=== PATIENT | female | born 1980 | race Hispanic/Latino ===

== ENCOUNTER 2020-04-07 12:00 | Inpatient (IN) | payer OTHER ==
[~2020-04-07] VITALS: Ht 161.3 cm; Wt 110.0 kg
[2020-04-10 10:31] LABS: BASOPHILS % (AUTO) 0.6 % (0.0-5.0); EOSINOPHILS % (AUTO) 1.2 % (0.0-8.0); HEMATOCRIT 36.9 % (36-48); LYMPHOCYTES % (AUTO) 25.8 % (21.0-51.0); MEAN CORPUSCULAR HEMOGLOBIN 29.4 pg (27.0-33.0); MEAN CORPUSCULAR VOLUME 91.8 fL (79-99); MONOCYTES % (AUTO) 4.9 % (3.0-13.0); PLATELET COUNT (AUTO) 293 K/uL (130-400); RED BLOOD CELL COUNT(AUTO) 4.02 MIL/uL (4.00-5.50); RED CELL DISTRIBUTION WIDTH 12.5 % (11.0-15.5); WHITE BLOOD COUNT (AUTO) 8.6 K/uL (4.8-10.8)
[2020-04-10 10:42] LABS: INR 0.93 (0.85-1.15); PROTHROMBIN TIME 10.1 SEC (9.6-11.6)
[2020-04-10 10:43] LABS: CREATININE 0.6 mg/dL (0.5-1.5)
[2020-04-10 11:20] LABS: APPEARANCE,URINE Clear (CLEAR); BILIRUBIN,URINE Negative (NEGATIVE); COLOR,URINE Yellow (YELLOW); GLUCOSE, URINE (UA) Negative (NEGATIVE); KETONES,URINE Negative (NEGATIVE); LEUKOCYTE ESTERASE ,URINE Negative (NEGATIVE); NITRATE,URINE Negative (NEGATIVE); OCCULT BLOOD,URINE Negative (NEGATIVE); PROTEIN,URINE Negative (NEGATIVE); UROBILINOGEN,URINE 0.2 mg/dL (0.2-1.0)
[2020-04-11 14:34] VITALS: BP 140/69
[2020-04-11] MEDS ORDERED: LISI10TA7 PO (14:40)
[2020-04-11] MEDS ORDERED: OMEG-125 PO (14:40)
[2020-04-11] MEDS ORDERED: TURM1POW2 MC (14:40)
[2020-04-11] MEDS ORDERED: GARL1000 PO (14:40)
[2020-04-11] MEDS ORDERED: METF-444 PO (14:40)
[2020-04-14] VITALS (20 sets, daily range): BP systolic 97–123; BP diastolic 55–74
[2020-04-14] MEDS: CEFAZOLIN SODIUM 1 GM VIAL IVP SCH ×2 (12:00→16:15)
[2020-04-14] MEDS ORDERED: SODIUM CHLORIDE 0.9% 1000ML 1,000 ML IV ONE (12:03)
--- NOTE | 2020-04-14 12:05 | NUR ---
POTENTIAL FOR INFECTION: CLIPPED RT HIP / RT UPPER LEG PER SAMANTHA WILLIAM, FOLLOWED BY WIPING WITH PANCHO: 2% CHLORHEXIDINE GLUCONATE CLOTH PATIENTS PRE-OP SKIN PREP.
[2020-04-14] MEDS ORDERED: ACETAMINOPHEN EXTRA STRENGTH 500 MG TABLET ONE (13:13)
[2020-04-14] MEDS ORDERED: CELECOXIB 200 MG CAP ONE (13:14)
[2020-04-14] MEDS ORDERED: MIDAZOLAM HCL 1 MG/ML 2ML VIAL ONE (13:36)
[2020-04-14] MEDS ORDERED: FENTANYL CITRATE PF 50 MCG/1 ML 2ML VIAL ONE ×4 (13:36→18:12)
[2020-04-14] MEDS ORDERED: CEFAZOLIN SODIUM 1 GM VIAL ONE (14:27)
[2020-04-14] MEDS ORDERED: TRANEXAMIC ACID 1000MG/10ML ONE ×2 (14:27→19:31)
[2020-04-14] MEDS ORDERED: ROPIVACAINE 0.5% 5MG/ML 30ML IJ ONE ×2 (15:04→15:05)
[2020-04-14] MEDS ORDERED: EPHEDRINE SULFATE 50 MG/ML AMPULE ONE (15:59)
[2020-04-14] MEDS ORDERED: ROCURONIUM 10MG/1ML SYR 10 MG/ML ML ONE (16:04)
[2020-04-14] MEDS ORDERED: ALBUMIN (HUMAN) 5% 500 ML IV ONE (16:09)
[2020-04-14] MEDS ORDERED: CEFAZOLIN SODIUM 1 GM VIAL IRRIG ONE (16:40)
[2020-04-14] MEDS ORDERED: DiphenhydrAMINE HCL 50 MG/ML VIAL IVP PRN (19:45)
[2020-04-14] MEDS ORDERED: POTASSIUM CHLORIDE 10% ELIXIR 20 MEQ/15 ML UDCUP PO PRN (19:45)
[2020-04-14] MEDS ORDERED: CALCIUM CARBONATE 500 MG TABLET PO PRN (19:45)
[2020-04-14] MEDS ORDERED: ONDANSETRON HCL 4 MG/2 ML VIAL IVP PRN (19:45)
[2020-04-14] MEDS ORDERED: POTASSIUM CHLORIDE 20MEQ/100ML 100 ML IV PRN (19:45)
[2020-04-14] MEDS ORDERED: FERROUS FUMARATE 324 MG TABLET PO PRN (19:45)
[2020-04-14] MEDS ORDERED: POTASSIUM CHLORIDE 20 MEQ ERTAB PO PRN (19:45)
[2020-04-14] MEDS ORDERED: TRAMADOL HCL 50 MG TABLET PO PRN (19:45)
[2020-04-14] MEDS ORDERED: LIDOCAINE HCL-MPF 1% 2ML VIAL IV PRN (19:45)
[2020-04-14] MEDS ORDERED: KETOROLAC TROMETHAMINE 15MG/ML IV PRN (19:45)
[2020-04-14] MEDS ORDERED: MEPERIDINE-PF 25 MG/ML SYG ONE ×2 (20:36→20:46)
[2020-04-14] MEDS: INSULIN HUMULIN R 100 UNIT/ML 3ML SQ SCH (21:00)
--- NOTE | 2020-04-14 21:15 | NUR ---
POST OP PATIENT ARRIVED TO ROOM 325 AAOX3 BUT DROWSY STACIE DRESSING TO RIGHT HIP DRY AND INTACT NO LEAKS. ALL QUESTIONS AND CONCERNS ADDRESSED.
[2020-04-14] MEDS: SODIUM CHLORIDE 0.9% 1000ML 1,000 ML IV SCH (22:29)
[2020-04-14] MEDS: CELECOXIB 200 MG CAP PO SCH (22:29)
[2020-04-14] MEDS: FAMOTIDINE 20MG TAB 20 MG TAB PO SCH (22:29)
[2020-04-14] MEDS: PREGABALIN 25 MG CAP PO SCH (22:29)
[2020-04-14] MEDS: ACETAMINOPHEN EXTRA STRENGTH 500 MG TABLET PO SCH (22:30)
[2020-04-14] MEDS: OXYCODONE HCL 5 MG TAB PO PRN (22:30)
[2020-04-14] MEDS: CEFAZOLIN 3GM /D5W 100ML 100 ML IV SCH (23:51)
[2020-04-14] MEDS: HYDROMORPHONE HCL 2 MG/ML VIAL IVP PRN (23:52)
[2020-04-15] VITALS (7 sets, daily range): BP systolic 100–117; BP diastolic 52–68
--- NOTE | 2020-04-15 01:15 | NUR ---
ACTIVITY PATIENT ASSISTED TO EDGE OF BED TO DANGLE LEGS PER PROTOCOL. PATIENT TOLERATED WELL AND WAS ASSISTED BACK TO BED.
[2020-04-15] MEDS: HYDROMORPHONE HCL 2 MG/ML VIAL IVP PRN ×5 (01:23→23:16)
[2020-04-15] MEDS: ACETAMINOPHEN EXTRA STRENGTH 500 MG TABLET PO SCH ×3 (03:45→20:33)
[2020-04-15] MEDS: SODIUM CHLORIDE 0.9% 1000ML 1,000 ML IV SCH ×2 (05:26→15:32)
[2020-04-15 05:40] LABS: HEMATOCRIT 28.1 % (36-48); MEAN CORPUSCULAR HEMOGLOBIN 29.3 pg (27.0-33.0); MEAN CORPUSCULAR VOLUME 91.5 fL (79-99); RED BLOOD CELL COUNT(AUTO) 3.07 MIL/uL (4.00-5.50); RED CELL DISTRIBUTION WIDTH 12.5 % (11.0-15.5); WHITE BLOOD COUNT (AUTO) 13.4 K/uL (4.8-10.8)
[2020-04-15 05:54] LABS: CREATININE 0.7 mg/dL (0.5-1.5); POTASSIUM 4.1 mmol/L (3.5-5.1)
[2020-04-15] MEDS: INSULIN HUMULIN R 100 UNIT/ML 3ML SQ SCH ×4 (06:33→20:38)
[2020-04-15] MEDS: METFORMIN HCL 500 MG TABLET PO SCH ×2 (08:06→17:10)
[2020-04-15] MEDS: OXYCODONE HCL 5 MG TAB PO PRN ×2 (08:07→20:34)
[2020-04-15] MEDS: CEFAZOLIN 3GM /D5W 100ML 100 ML IV SCH (08:45)
[2020-04-15] MEDS ORDERED: CEFAZOLIN SODIUM 1 GM VIAL ONE (09:28)
[2020-04-15] MEDS: POLYETHYLENE GLYCOL 3350 17 GM POWD.PACK PO SCH (09:43)
[2020-04-15] MEDS: PREGABALIN 25 MG CAP PO SCH ×2 (09:43→20:32)
[2020-04-15] MEDS: APIXABAN 2.5 MG TABLET PO SCH ×2 (09:43→20:33)
[2020-04-15] MEDS: FAMOTIDINE 20MG TAB 20 MG TAB PO SCH ×2 (09:43→20:33)
[2020-04-15] MEDS: FISH OIL 1000 MG/CAP PO SCH (09:44)
[2020-04-15] MEDS: CELECOXIB 200 MG CAP PO SCH ×2 (09:44→20:33)
[2020-04-15] MEDS: LISINOPRIL 10 MG TABLET PO SCH (09:44)
[2020-04-16] VITALS: BP 107/56
[2020-04-16] MEDS: HYDROMORPHONE HCL 2 MG/ML VIAL IVP PRN ×3 (00:56→04:45)
[2020-04-16] MEDS: OXYCODONE HCL 5 MG TAB PO PRN ×3 (01:30→12:28)
[2020-04-16] MEDS: ACETAMINOPHEN EXTRA STRENGTH 500 MG TABLET PO SCH ×2 (03:07→12:28)
[2020-04-16 04:00] VITALS: BP 97/54
[2020-04-16] MEDS: INSULIN HUMULIN R 100 UNIT/ML 3ML SQ SCH ×2 (06:32→11:30)
[2020-04-16 08:36] VITALS: BP 111/64
[2020-04-16] MEDS: POLYETHYLENE GLYCOL 3350 17 GM POWD.PACK PO SCH (09:47)
[2020-04-16] MEDS: FAMOTIDINE 20MG TAB 20 MG TAB PO SCH (09:47)
[2020-04-16] MEDS: FISH OIL 1000 MG/CAP PO SCH (09:48)
[2020-04-16] MEDS: PREGABALIN 25 MG CAP PO SCH (09:48)
[2020-04-16] MEDS: CELECOXIB 200 MG CAP PO SCH (09:48)
[2020-04-16] MEDS: METFORMIN HCL 500 MG TABLET PO SCH (09:48)
[2020-04-16] MEDS: LISINOPRIL 10 MG TABLET PO SCH (09:48)
[2020-04-16] MEDS: APIXABAN 2.5 MG TABLET PO SCH (09:48)
[2020-04-16 17:16] VITALS: BP 96/56
[2020-04-16] MEDS ORDERED: HYDR-4457 PO (17:20)
[2020-04-16] MEDS ORDERED: APIX2.5T PO (17:20)
--- NOTE | 2020-04-16 18:05 | NUR ---
DISCHARGE PATIENT GIVEN DISCHARGE INSTRUCTIONS AND EDUCATION ON FOLLOW UP APPOINTMENTS, NEW RX (ELIQUIS, NORCO), PHYSICAL THERAPY ARRANGED BY [facility]ER TOMORROW, AND STACIE DRESSING CARE. PATIENT VERBALIZED UNDERSTANDING OF ALL EDUCATION GIVEN VIA TEACH BACK. IV DISCONTINUED, CATHETER INTACT. NO DISTRESS NOTED UPON DISCHARGE. STACIE DRESSING CHANGED, SEAL INTACT, NEGATIVE PRESSURE ACTIVE.
--- NOTE | 2020-04-16 18:31 | NUR ---
DC PLAN VISITED WITH PATIENT GOT NOAM FOR ANY IN NETWORK FOR HOME HEALTH AND DME. SENT AND SAID NOT IN NETWORK: [facility], [facility], [facility], [facility], [facility]. CALLED INSURANCE NUMBER ON FACE SHEET. AFTER DISCUSSING CASE WITH FRANKLYN . FINAL IN NETWORK. [facility] AND [facility]. DME IN [place] [employer]IST. SNF BENEFITS [facility], [facility], [facility], [facility]. DISCUSSED CASE WITH PATIENT DECIDED SHE WILL BORROW WALKER FROM FAMILY NOT USING. WILL GO TO OUTPATIENT THERAPY WITH [facility] AND WILL FOLLOW UP WITH DR. LENZ. DID NOT WANT TO GO TO SNF SINCE THERE ARE ACTIVE COVIDS IN SOME OF THE SNF'S. DR. LENZ IN ROOM WITH PATIENT ALL AGREED ON [facility]. PATIENT WANTED TO GO HOME. UNDERSTANDS THAT IT IS ALREADY AFTER 5 AND WILL NOT HAVE ACCEPTANCE TODAY. SAID SHE WAS FINE WITH THAT WANTS TO GO HOME. DR. LENZ GAVE OKAY. CM FAXED INFO TO [facility]. WILL CALL IN THE MORNING WHEN THEY OPEN TO SEE IF RECEIVED AND ACCEPTED. GAVE PATIENT DIRECT PHONE NUMBER TO . Addendum: 04/16/20 at 1839 by DAVIDSON JONES RN CM Amended: Links added.
--- NOTE | 2020-04-16 18:43 | NUR ---
DC PLAN VISITED WITH PATIENT. PATIENT LIVES WITH SISTER. INDEPENDENT ABLE TO PERFORM ADL'S. PATIENT HAS NO SERVICES OR DME'S. FEELS SAFE TO RETURN HOME. CORRECT ADDRESS [address] [facility] [id number] [id number] SENT TO REGISTRATION. Addendum: 04/16/20 at 1845 by DAVIDSON JONES RN CM Amended: Links added.
[2020-04-17] MEDS ORDERED: BISACODYL 10 MG SUPP.RECT RC PRN (19:45)
== END 2020-04-16 19:00 | disposition home or self-care (01) | DRG 470 ==
LOC: EDSTATUS 12:00 → DAHIP 04-14 10:47 → 3DH 04-14 20:49
PROVIDERS: ADMIT Orthopaedic Surgery; ATTEND Orthopaedic Surgery
PROC: 0SR90JZ Replacement of Right Hip Joint with Synthetic Substitute, Open Approach (ICD-10-PCS; principal; 2020-04-14 15:20)
PROC: 3E0T3BZ Introduction of Anesthetic Agent into Peripheral Nerves and Plexi, Percutaneous Approach (ICD-10-PCS; 2020-04-14 15:20)
DX: M16.11 Unilateral primary osteoarthritis, right hip (principal); D62 Acute posthemorrhagic anemia; M87.9 Osteonecrosis, unspecified; Q65.89 Other specified congenital deformities of hip; E11.9 Type 2 diabetes mellitus without complications; I10 Essential (primary) hypertension; Z82.49 Family history of ischemic heart disease and other diseases of the circulatory system; Z83.3 Family history of diabetes mellitus; Z20.828 Contact with and (suspected) exposure to other viral communicable diseases
CPT/HCPCS: 36415; 73503; 80048; 81003; 82948; 84703; 85025; 85027; 85610; 87641; 97039; C1776; G0378; J0690; J1170; J1815; J1885; J2175; J2250; J2795; J3010; J3490; J7030; P9045; U0003

== ENCOUNTER 2020-04-19 17:32 | Inpatient (IN) | payer OTHER ==
[~2020-04-19] VITALS: Ht 160 cm; Wt 109.5 kg
[~2020-04-19 17:32] MED LIST: APIX2.5T PO; GARL1000 PO; HYDR-4457 PO; LISI10TA7 PO; METF-444 PO; OMEG-125 PO; TURM1POW2 MC
[2020-04-19] MEDS ORDERED: ACETAMINOPHEN EXTRA STRENGTH 500 MG TABLET ONE (18:14)
[2020-04-19 18:22] LABS: BASOPHILS % (AUTO) 0.4 % (0.0-5.0); EOSINOPHILS % (AUTO) 0.8 % (0.0-8.0); HEMATOCRIT 27.2 % (36-48); LYMPHOCYTES % (AUTO) 13.4 % (21.0-51.0); MEAN CORPUSCULAR HEMOGLOBIN 29.3 pg (27.0-33.0); MEAN CORPUSCULAR HGB CONC 32.4 g/dL (32.0-36.0); MEAN CORPUSCULAR VOLUME 90.7 fL (79-99); MONOCYTES % (AUTO) 4.6 % (3.0-13.0); NEUTROPHILS % (AUTO) 80.3 % (40.0-77.0); PLATELET COUNT (AUTO) 326 K/uL (130-400); RED CELL DISTRIBUTION WIDTH 12.6 % (11.0-15.5); WHITE BLOOD COUNT (AUTO) 11.2 K/uL (4.8-10.8)
[2020-04-19 18:26] LABS: APPEARANCE,URINE Clear (CLEAR); BILIRUBIN,URINE Negative (NEGATIVE); COLOR,URINE Yellow (YELLOW); GLUCOSE, URINE (UA) Negative (NEGATIVE); KETONES,URINE Negative (NEGATIVE); LEUKOCYTE ESTERASE ,URINE Negative (NEGATIVE); NITRATE,URINE Negative (NEGATIVE); OCCULT BLOOD,URINE Negative (NEGATIVE); PH,URINE 7.5 (5.0-8.0); PROTEIN,URINE Negative (NEGATIVE); UROBILINOGEN,URINE 0.2 mg/dL (0.2-1.0)
[2020-04-19 18:55] LABS: CARBON DIOXIDE 28 mmol/L (21-32); CHLORIDE 100 mmol/L (101-111); CREATININE 0.7 mg/dL (0.5-1.5); GLOMERULAR FILTR. RATE CALC 98 mL/min (>60); GLUCOSE,RANDOM 147 mg/dL (70-105); POTASSIUM 3.3 mmol/L (3.5-5.1); SODIUM SERUM 137 mmol/L (136-145); UREA NITROGEN, BLOOD 8 mg/dL (7-18)
[2020-04-19 19:08] LABS: ALANINE AMINOTRANSFERASE 32 U/L (12-78); ALBUMIN 3.5 g/dL (3.5-5.0); ASPARTATE AMINOTRANSFERASE 22 U/L (10-37); BILIRUBIN,TOTAL 0.3 mg/dL (0.2-1.0); CREATINE KINASE, TOTAL 326 U/L (21-232); MYOGLOBIN 20 ng/mL (10-92); TOTAL PROTEIN, SERUM 8.1 g/dL (6.0-8.3); TROPONIN I < 0.04 ng/mL (0.00-0.06)
[2020-04-19] MEDS ORDERED: POTASSIUM BICARB/CIT AC 25 MEQ TABLET.EFF ONE (19:32)
[2020-04-19 20:22] LABS: INR 0.95 (0.85-1.15); PARTIAL THROMBOPLASTIN TIME 30.3 SEC (26.3-35.5); PROTHROMBIN TIME 10.3 SEC (9.6-11.6)
[2020-04-19] MEDS ORDERED: HYDROCODONE/ACETAMINOPHEN 5/325 MG TAB ONE (20:22)
[2020-04-19] MEDS ORDERED: DEXTROSE 50%-WATER 50 ML DISP.SYRIN IV PRN (20:45)
[2020-04-19] MEDS ORDERED: GLUCAGON 1MG KIT 1 MG ML IM PRN (20:45)
[2020-04-19] MEDS ORDERED: ACETAMINOPHEN 325 MG TAB PO PRN (20:45)
[2020-04-19] MEDS ORDERED: VANCOMYCIN PROTOCOL PER PHARMACY IV SCH (20:45)
[2020-04-19] MEDS ORDERED: HYDRALAZINE HCL 20 MG/ML VIAL IV PRN (21:00)
[2020-04-19] MEDS ORDERED: ONDANSETRON HCL 4 MG/2 ML VIAL IVP PRN (21:00)
[2020-04-19] MEDS ORDERED: COMPOUND IV REFRIGERATED 1 EACH IVSOLN MISC PRN (21:00)
[2020-04-19] MEDS ORDERED: ZOSYN 3.375GM+NS 50ML 50 ML IV ONE (21:09)
[2020-04-19] MEDS ORDERED: IOHEXOL 350 MG/ML 100ML INFUS..BTL IV ONE (21:47)
[2020-04-19] MEDS: SODIUM CHLORIDE 0.9% 1000ML 1,000 ML IV SCH (22:20)
[2020-04-19] MEDS: FAMOTIDINE 20MG TAB 20 MG TAB PO SCH (22:20)
[2020-04-19] MEDS: VANCOMYCIN 2 GM in SODIUM CHLORIDE 0.9% 500ML 500 ML IV ONE (22:20)
[2020-04-19] MEDS: INSULIN R PO SS1 SQ SCH (22:20)
[2020-04-19] MEDS: ZOSYN 3.375GM+NS 50ML 50 ML IV SCH (22:20)
--- NOTE | 2020-04-19 22:20 | NUR ---
ADMISSION PATIENT ADMITTED FROM ER INTO ROOM 327, AWAKE, ALERT, AND VERBALLY RESPONSIVE. NO C/O PAIN OR DISCOMFORT AT THIS TIME. STACIE DRESSING TO RIGHT HIP, FUNCTIONING PROPERLY. PATIENT RIGHT THIGH WARM TO TOUCH, BUT NO REDNESS, OR DRAINAGE OBSERVED. PATIENT WAS ORIENTED TO ROOM, CALL LIGHT WITHIN REACH, BED IN LOWEST POSITION. Addendum: 04/20/20 at 0122 by ACE PEREZ RN Amended: Links added.
[2020-04-20] VITALS: BP 134/76
[2020-04-20] MEDS: VANCOMYCIN 2 GM in SODIUM CHLORIDE 0.9% 500ML 500 ML IV ONE (01:51)
[2020-04-20 04:00] VITALS: BP 126/65
[2020-04-20] MEDS: INSULIN R PO SS1 SQ SCH ×3 (05:28→21:00)
[2020-04-20] MEDS: ZOSYN 3.375GM+NS 50ML 50 ML IV SCH ×3 (05:28→21:59)
[2020-04-20 05:57] LABS: HEMATOCRIT 24.3 % (36-48); MEAN CORPUSCULAR HEMOGLOBIN 29.2 pg (27.0-33.0); MEAN CORPUSCULAR HGB CONC 32.1 g/dL (32.0-36.0); RED BLOOD CELL COUNT(AUTO) 2.67 MIL/uL (4.00-5.50); RED CELL DISTRIBUTION WIDTH 12.7 % (11.0-15.5); WHITE BLOOD COUNT (AUTO) 8.9 K/uL (4.8-10.8)
[2020-04-20 06:34] LABS: CREATININE 0.6 mg/dL (0.5-1.5); POTASSIUM 3.9 mmol/L (3.5-5.1)
[2020-04-20 08:00] VITALS: BP 124/71
[2020-04-20] MEDS ORDERED: ENOXAPARIN SODIUM 40 MG/0.4 ML SYRINGE SQ SCH (09:00)
[2020-04-20] MEDS ORDERED: VANCOMYCIN 1.5 GM in SODIUM CHLORIDE 0.9% 250 ML IV SCH (09:00)
[2020-04-20] MEDS: FAMOTIDINE 20MG TAB 20 MG TAB PO SCH ×2 (09:30→21:58)
[2020-04-20] MEDS: HYDROCODONE/ACETAMINOPHEN 5/325 MG TAB PO PRN ×2 (09:39→21:59)
[2020-04-20 12:00] VITALS: BP 125/71
[2020-04-20] MEDS: SODIUM CHLORIDE 0.9% 1000ML 1,000 ML IV SCH ×2 (12:30→22:08)
[2020-04-20] MEDS: VANCOMYCIN 1.5 GM in SODIUM CHLORIDE 0.9% 250 ML IV SCH (14:40)
--- NOTE | 2020-04-20 15:16 | NUR ---
D/C PLAN CM spoke to pt regarding d/c planning. Pt is readmission from less than 4 days. States information is the same. Lives with spouse and has a wk at home. States she was scheduled to start o/p PT with [facility] tomorrow. CM explained consults and tests are pending to r/o infection. Explained option of possibly AIU or SNF if mcc IV abx needed. Verbalized understanding. BOYD explained again that Dr. Hwang is pending to evaluate and decide plan of care. Plan for now is to return home with same services. CM to f/u. Addendum: 04/20/20 at 1518 by SHANIA RENAE CM Amended: Links added.
[2020-04-20 16:00] VITALS: BP 134/76
[2020-04-20 20:24] VITALS: BP 130/61
[2020-04-20] MEDS: APIXABAN 2.5 MG TABLET PO SCH (21:58)
[2020-04-21] VITALS (7 sets, daily range): BP systolic 102–130; BP diastolic 43–75
[2020-04-21 02:15] LABS: BASOPHILS % (AUTO) 0.3 % (0.0-5.0); EOSINOPHILS % (AUTO) 1.6 % (0.0-8.0); HEMATOCRIT 24.4 % (36-48); LYMPHOCYTES % (AUTO) 22.6 % (21.0-51.0); MEAN CORPUSCULAR HEMOGLOBIN 29.1 pg (27.0-33.0); MEAN CORPUSCULAR HGB CONC 31.6 g/dL (32.0-36.0); MEAN CORPUSCULAR VOLUME 92.1 fL (79-99); NEUTROPHILS % (AUTO) 68.9 % (40.0-77.0); PLATELET COUNT (AUTO) 273 K/uL (130-400); RED BLOOD CELL COUNT(AUTO) 2.65 MIL/uL (4.00-5.50); RED CELL DISTRIBUTION WIDTH 12.7 % (11.0-15.5); WHITE BLOOD COUNT (AUTO) 8.6 K/uL (4.8-10.8)
[2020-04-21 02:27] LABS: CREATININE 0.6 mg/dL (0.5-1.5)
[2020-04-21] MEDS: VANCOMYCIN 1.5 GM in SODIUM CHLORIDE 0.9% 250 ML IV SCH ×3 (03:58→23:24)
[2020-04-21] MEDS: SODIUM CHLORIDE 0.9% 1000ML 1,000 ML IV SCH ×2 (04:01→04:04)
[2020-04-21] MEDS: ZOSYN 3.375GM+NS 50ML 50 ML IV SCH ×3 (06:46→21:15)
[2020-04-21] MEDS: INSULIN R PO SS1 SQ SCH ×4 (07:02→21:00)
[2020-04-21] MEDS: FAMOTIDINE 20MG TAB 20 MG TAB PO SCH ×2 (08:41→21:15)
[2020-04-21] MEDS: APIXABAN 2.5 MG TABLET PO SCH ×2 (08:41→21:15)
[2020-04-21] MEDS: FERROUS SULFATE 325 MG TABLET.DR PO SCH (08:42)
[2020-04-21] MEDS: LISINOPRIL 10 MG TABLET PO SCH (08:42)
[2020-04-21] MEDS: HYDROCODONE/ACETAMINOPHEN 5/325 MG TAB PO PRN (13:42)
--- NOTE | 2020-04-21 14:54 | NUR ---
DRESSING DRESSING CHANGED USING CLEAN TECHNIQUE. OLD DRESSING REMOVED. NO DRAINAGE, ODOR, EDEMA NOTED. CLEANED SITE WITH IODINE, 4X4 GAUZE APPLIED AND TAPE ON TOP. PATIENT TOLERATED WELL. NO DISTRESS NOTED. WILL CONTINUE TO MONITOR CLOSELY.
[2020-04-22 04:00] VITALS: BP 123/73
[2020-04-22] MEDS: HYDROCODONE/ACETAMINOPHEN 5/325 MG TAB PO PRN ×2 (04:36→08:46)
[2020-04-22] MEDS: ZOSYN 3.375GM+NS 50ML 50 ML IV SCH (04:36)
[2020-04-22] MEDS: VANCOMYCIN 1.5 GM in SODIUM CHLORIDE 0.9% 250 ML IV SCH (06:00)
[2020-04-22 07:30] VITALS: BP 125/71
[2020-04-22] MEDS: INSULIN R PO SS1 SQ SCH ×2 (07:30→11:30)
[2020-04-22] MEDS: FERROUS SULFATE 325 MG TABLET.DR PO SCH (08:44)
[2020-04-22] MEDS: FAMOTIDINE 20MG TAB 20 MG TAB PO SCH (08:45)
[2020-04-22] MEDS: LISINOPRIL 10 MG TABLET PO SCH (08:45)
[2020-04-22] MEDS: APIXABAN 2.5 MG TABLET PO SCH (08:45)
--- NOTE | 2020-04-22 10:43 | NUR ---
CHART REVIEWED. TEXT TO DR. YOANNA ROSALES DC PLAN. PENDING DISCUSSION
[2020-04-22 11:00] VITALS: BP 94/53
[2020-04-22] MEDS ORDERED: SULF1TAB42 PO (11:32)
--- NOTE | 2020-04-22 15:14 | NUR ---
DISPO: HOME PATIENT WILL BE DOING OWN DRESSING CHANGES- NO HH BENEFITS PER LAST ADMISSION CM NOTES. PRIMARY RN AWARE AND WILL TEACH AND ENSURE PT HAS SOME SUPPLIES WHEN SHE LEAVES. NOAM FOR [facility] OBTAINED// ORDER FOR OUTPATIENT REHAB WITH UPDATES SENT TO [facility] AND APPOINTMENT MADE FOR TOMORROW AT 9 AM, PATIENT AWARE. Addendum: 04/22/20 at 1517 by JAMES GALINDO RN CM Amended: Links added.
[2020-04-22] MEDS ORDERED: VANCOMYCIN 1.25 GM in SODIUM CHLORIDE 0.9% 250 ML IV SCH (22:00)
== END 2020-04-22 17:10 | disposition home or self-care (01) | DRG 872 ==
LOC: EDH 17:32 → EDHIP 20:18 → OBSVTOIN 20:18 → 3DH 21:17
PROVIDERS: ADMIT Internal Medicine; ATTEND Internal Medicine
DX: A41.9 Sepsis, unspecified organism (principal); N39.0 Urinary tract infection, site not specified; Z96.641 Presence of right artificial hip joint; I10 Essential (primary) hypertension; E11.9 Type 2 diabetes mellitus without complications; R50.82 Postprocedural fever; B96.4 Proteus (mirabilis) (morganii) as the cause of diseases classified elsewhere; M19.90 Unspecified osteoarthritis, unspecified site; Z20.828 Contact with and (suspected) exposure to other viral communicable diseases; Z79.01 Long term (current) use of anticoagulants; Z79.84 Long term (current) use of oral hypoglycemic drugs
CPT/HCPCS: 36415; 71045; 71275; 73502; 80048; 80053; 80202; 81003; 82550; 82728; 82948; 83605; 83735; 83874; 84145; 84484; 85025; 85027; 85378; 85610; 85730; 87040; 87077; 87088; 87186; 87635; 93005; 93971; 97039; G0378; J1650; J2543; J3370; J7030; J7040; J7050; Q9967